=== PATIENT | male | born 1950 | race Caucasian/White ===

== ENCOUNTER 2017-07-15 05:50 | Day surgery (SDC) | payer OTHER ==
[~2017-07-15 05:50] MED LIST: ALTACE1.25 M1 PO; BISOPROLOL/HCTZ1 TA2 PO; GLUCOPHAGE XR750 MG PO; GLUCOTROL10 MG PO; SAXAGLIPTIN
== END 2017-07-15 11:00 | disposition home or self-care (01) ==
LOC: AMB-ENDOS 05:50
DX: D12.3 Benign neoplasm of transverse colon (principal); K57.30 Diverticulosis of large intestine without perforation or abscess without bleeding